=== PATIENT | female | born 1980 | race Caucasian/White ===

== ENCOUNTER → 2016-10-16 | Outpatient (CLI) | payer BC ==
--- NOTE | 2016-10-16 11:18 | MM ---
Reason for exam: additional evaluation requested from prior study. Last mammogram was performed 1 year and 2 months ago. History: Family history of unknown cancer in maternal aunt, breast cancer in paternal aunt, breast cancer in mother at age 30, breast cancer in maternal grandmother at age 40, and breast cancer in paternal grandmother at age 40. Taking hormonal contraceptives for 6 months. Physical Findings: Nurse did not find any significant physical abnormalities on exam. MG 3D Diag Mammo W/Cad JOSE MIGUEL Bilateral CC and MLO view(s) were taken. Prior study comparison: August 07, 2015, bilateral MG 3d diag mammo w/cad JOSE MIGUEL. February 16, 2013, left breast ultrasound. There is chronic nodularity in the right breast. There is no discrete abnormality. These results were verbally communicated with the patient and result sheet given to the patient on 10/16/16. ASSESSMENT: Benign, BI-RAD 2 RECOMMENDATION: Routine screening mammogram of both breasts in 1 year. Manage on a clinical basis with regard to pain.
--- NOTE | 2016-10-16 11:25 | USB ---
Reason for exam: clinical finding. History: Family history of unknown cancer in maternal aunt, breast cancer in paternal aunt, breast cancer in mother at age 30, breast cancer in maternal grandmother at age 40, and breast cancer in paternal grandmother at age 40. Taking hormonal contraceptives for 6 months. US Breast BILAT Right breast ultrasound includes all four quadrants, the retroareolar region and axilla. Finding demonstrate a 6 x 3 x 3mm oval, lymph node seen on previous at 7 o'clock and lymph node at axillary tail. Left breast ultrasound includes all four quadrants, the retroareolar region and axilla. Finding demonstrate lymph nodes in the axillary tail. These results were verbally communicated with the patient and result sheet given to the patient on 10/16/16. ASSESSMENT: Benign, BI-RAD 2 RECOMMENDATION: Routine screening mammogram of both breasts in 1 year. Manage on a clinical basis with regard to symptoms of pain.
== END | disposition home or self-care (01) ==
LOC: RADMAMWWP 09:52
PROVIDERS: ATTEND Family Medicine
DX: R92.8 Other abnormal and inconclusive findings on diagnostic imaging of breast (principal)
CPT/HCPCS: 76641; G0204; G0279

== ENCOUNTER → 2016-10-16 | Outpatient (CLI) | payer BC ==
--- NOTE | 2016-10-17 08:31 | XR ---
EXAMINATION TYPE: XR knee complete RT DATE OF EXAM: 10/16/2016 9:47 AM COMPARISON: NONE HISTORY: Pain TECHNIQUE: Four views are submitted. FINDINGS: There is narrowing of the medial compartment of the knee joint with hypertrophic changes. Hypertrophi c changes and narrowing of patellofemoral joint seen. Osseous structures are intact. No acute fractu re seen. IMPRESSION: 1. Moderate to severe osteoarthritis.
== END | disposition home or self-care (01) ==
LOC: RADXRYALE 09:42
PROVIDERS: ATTEND Nurse Practitioner Family
DX: M17.11 Unilateral primary osteoarthritis, right knee (principal)

== ENCOUNTER → 2017-01-14 | Outpatient (CLI) | payer BC ==
--- NOTE | 2017-01-15 06:59 | US ---
EXAMINATION TYPE: US bladder DATE OF EXAM: 01/14/2017 COMPARISON: NONE CLINICAL HISTORY: Urinary urgency R39.15. frequency EXAM MEASUREMENTS: Post Void Residual Volume: no residual bladder seen post void mL Color Doppler performed to assess ureteral jets. Bilateral Jets seen: Yes Normal Post Void Residual (less than 50ml): yes IMPRESSION: 1. No abnormality noted.
== END | disposition home or self-care (01) ==
LOC: RADUSWWP 15:46
PROVIDERS: ATTEND Family Medicine
DX: R39.15 Urgency of urination (principal)
CPT/HCPCS: 76857

== ENCOUNTER → 2017-10-14 | Outpatient (CLI) | payer BC ==
[2017-10-14 13:46] VITALS: BP 144/88; PULSE 85; RESP 16
--- NOTE | 2017-10-14 14:08 | P.PN ---
Progress Note - Text Progress Note Date: 10/14/17 Patient returns for followup for chronic back pain with radiation to hips and legs. In 2013 and 2014, patient underwent SIJ injections, epidural injections, and RFA, all of which provided only short-term relief, and she has not been to our clinic in > 24 months. Patient continues on Percocet medications for pain with some relief from her PCP. Patient denies adverse drug effects from medications. Today, pt denies new-onset weakness, bowel/bladder incontinence, or any other signs or symptoms of cauda equina syndrome. There are no signs of acute intoxication, and no indications of medication diversion or overuse. In addition to above, 13-point review of systems is also negative for chest pain , shortness of breath, changes in vision, changes in hearing, new onset weakness , abdominal pain, diarrhea, extreme fatigue, malaise, fever, skin changes, homicidal or suicidal ideation, or bowel or bladder incontinence. Vital Signs: Reviewed in EMR Gen: WDWN, AAOx3, NAD HEENT: NCAT, EOMI, hearing grossly normal Pulm: resp unlabored Abd: soft, NT, ND Neck: supple, trachea midline ROM in flexion lumbar spine: reduced ROM in extension lumbar spine: reduced Lumbar paravertebral tenderness: + Facet loading: + bilateral, L > R SI joint tenderness: + R > L Suleiman's test: + R > L Straight leg raise: neg Neuro: CN II-XII grossly intact, muscle strength lower extremities PRESERVED Imaging: Reviewed in EMR Assessment: 1. lumbar PLPS 2. lumbar spondylosis 3. chronic pain syndrome Plan: 1. Explanation: Opioid and psychological risk scores were reviewed. Diagnoses , prognoses, and multiple treatment options including but not limited to physical therapy, interventional therapies, adjuvant medical therapies, narcotic medication therapies, and surgery were discussed with the patient and all questions were answered to the patient's satisfaction. 2. Opioid agreement: no opioids prescribed today 3. Counseling: The patient was counseled extensively on SMOKING CESSATION, BODY MASS INDEX, EXERCISE. Specifically, the patient was instructed regarding the importance of smoking cessation, weight control, and exercise in the context of both chronic pain and overall health. 4. Procedures: SCS DVD given (likely plan for [employer]) 5. Consultations: Dr. Rodas, surgical consultation 6. Investigations: None 7. Medications: none prescribed 8. Disposition: f/u for re-eval in 8 weeks after appt with Dr. Rodas PQRS measures: 1-Patient's medications are documented in the chart. 2-Tobacco use is positive, counseling given 3-Patient has not had a pneumococcal vaccine. 4-Advanced care planning discussed, patient unable to give. 5-Opioid contract NOT signed with the patient. 6-Pain positive, follow-up visit or procedure scheduled 7-Patient's blood pressure measured and documented, and patient will follow up with the primary care due to hypertension. 8-Patient's weight was measured, and body mass index ABOVE the normal limits, and counseling was done. Patient instructed to follow up with PCP. 9-Patient WAS NOT identified as an unhealthy alcohol user.
== END | disposition home or self-care (01) ==
LOC: PNWHC3 12:49
PROVIDERS: ATTEND Anesthesiology
DX: G89.4 Chronic pain syndrome (principal); M47.816 Spondylosis without myelopathy or radiculopathy, lumbar region; M96.1 Postlaminectomy syndrome, not elsewhere classified; Z79.899 Other long term (current) drug therapy
CPT/HCPCS: 99211

== ENCOUNTER → 2018-02-17 | Outpatient (CLI) | payer OTHER ==
--- NOTE | 2018-02-18 10:20 | MM ---
Reason for exam: screening (asymptomatic). Last mammogram was performed 1 year and 4 months ago. History: Family history of unknown cancer in maternal aunt, breast cancer in paternal aunt, breast cancer in mother at age 30, breast cancer in maternal grandmother at age 40, and breast cancer in paternal grandmother at age 40. Took hormonal contraceptives for 6 months. Physical Findings: A clinical breast exam by your physician is recommended on an annual basis and results should be correlated with mammographic findings. MG 3D Screening Mammo W/Cad Bilateral CC and MLO view(s) were taken. Prior study comparison: October 16, 2016, bilateral MG 3d diag mammo w/cad JOSE MIGUEL. August 07, 2015, bilateral MG 3d diag mammo w/cad JOSE MIGUEL. The breast tissue is heterogeneously dense. This may lower the sensitivity of mammography. Stable right intramammary lymph node. ASSESSMENT: Negative, BI-RAD 1 RECOMMENDATION: Routine screening mammogram of both breasts at age 40. Manage on a clinical basis. If discharge in clear, bloody or from duct and suspicious diagnostic exam is recommended.
== END | disposition home or self-care (01) ==
LOC: RADMAMWWP 13:45
PROVIDERS: ATTEND Family Medicine
DX: Z12.31 Encounter for screening mammogram for malignant neoplasm of breast (principal); Z80.3 Family history of malignant neoplasm of breast
CPT/HCPCS: 77063; 77067

== ENCOUNTER → 2018-02-23 | Outpatient (CLI) | payer OTHER ==
--- NOTE | 2018-02-23 23:42 | MR ---
EXAMINATION TYPE: MR lumbar spine wo/w con DATE OF EXAM: 02/23/2018 COMPARISON: 03/10/2015 HISTORY: Low back pain, previous surgery, Gadavist 10ml TECHNIQUE: Multiplanar, multisequence images of the lumbar spine were acquired utilizing 10 mL intravenous Gadav ist gadolinium contrast. Normal alignment. Disc spaces are fairly normal. There is metal artifact and previous anterior fusion at L4-5.. The spinal canal has normal size. There is no spinal stenosis. Lumbar nerve roots appear n ormal. The neuroforamina appear widely patent. There is posterior metal artifact at L5-S1. Sacroiliac joints appear intact. There is no lumbar paraspinal mass. I see no focal bone destruction. The contr ast images show no pathologic enhancement. IMPRESSION: Previous fusion surgery. No fracture. No spinal stenosis. No lumbar disc herniation. No c hange compared to old exam.
== END | disposition home or self-care (01) ==
LOC: RADMRIMAIN 16:24
PROVIDERS: ATTEND Family Medicine
DX: M51.16 Intervertebral disc disorders with radiculopathy, lumbar region (principal); Z98.1 Arthrodesis status
CPT/HCPCS: 72158; A9581

== ENCOUNTER → 2018-04-12 | Outpatient (CLI) | payer BC ==
[2018-04-12 15:14] VITALS: BP 116/76; PULSE 77; RESP 18
--- NOTE | 2018-04-12 15:36 | P.PN ---
Subjective Progress Note Date: 04/12/18 Principal diagnosis: Failed back surgery syndrome This is a 37-year-old female with lower back pain with radiation to both legs to the knee levels. She is numbness in the right foot. The patient has been on Percocet, and Neurontin. Her pain has been getting out of control lately. Today, pt denies new-onset weakness, bowel/bladder incontinence, or any other signs or symptoms of cauda equina syndrome. There are no signs of acute intoxication, and no indications of medication diversion or overuse. In addition to above, 13-point review of systems is also negative for chest pain , shortness of breath, changes in vision, changes in hearing, new onset weakness , abdominal pain, diarrhea, extreme fatigue, malaise, fever, skin changes, homicidal or suicidal ideation, or bowel or bladder incontinence. Vital Signs: Reviewed in EMR Gen: AAOx3, NAD HEENT: PERRLA,hearing grossly normal Pulm: resp unlabored,CTA Heart:S1,S2, No Mur Neck: supple, trachea midline Neuro exam of the lower extremities: Showed decreased but symmetrical deep tendon reflexes and decreased hip flexion bilaterally to 4 out of 5 Straight leg raising test: Negative Tenderness in the paravertebral musculature: Positive in the lumbar area Positive tenderness around the sacroiliac joints bilaterally Neuro: CN II-XII grossly intact, Imaging: Reviewed in EMR/chart Assessment: Failed back surgery syndrome Bilateral sacroiliitis Obesity Operative dependence Plan: 1. Explanation: Opioid and psychological risk scores were reviewed. Diagnoses , prognoses, and multiple treatment options including but not limited to physical therapy, interventional therapies, adjuvant medical therapies, narcotic medication therapies, and surgery were discussed with the patient and all questions were answered to the patient's satisfaction. 2. Opioid agreement: We do not prescribe opioids for this patient 3. Counseling: The patient was counseled extensively on SMOKING CESSATION, BODY MASS INDEX, EXERCISE. Specifically, the patient was instructed regarding the importance of smoking cessation, obesity, and exercise in the context of both chronic pain and overall health. 4. Procedures: Scheduled for bilateral sacroiliac joint steroid injection under fluoroscopic guidance as diagnostic procedure 5. Consultations: None 6. Investigations: None 7. Medications: None prescribed 8. Disposition: Return to clinic for the above-mentioned procedure Objective - Vital Signs Vital signs: Vital Signs Temp Pulse 77 04/12/18 15:08 Resp 18 04/12/18 15:08 BP 116/76 04/12/18 15:08 Pulse Ox 99 04/12/18 15:08 Intake & Output 04/11/18 04/12/18 04/12/18 18:59 06:59 18:59 Weight 107.501 kg
== END | disposition home or self-care (01) ==
LOC: PNWHC3 13:47
PROVIDERS: ATTEND Anesthesiology
DX: M96.1 Postlaminectomy syndrome, not elsewhere classified (principal); M46.1 Sacroiliitis, not elsewhere classified; E66.9 Obesity, unspecified; Z68.39 Body mass index [BMI] 39.0-39.9, adult
CPT/HCPCS: 99211

== ENCOUNTER 2018-04-15 09:52 | Day surgery (SDC) | payer BC ==
[2018-04-13 14:52] VITALS: BMI 39.4
[~2018-04-15 09:52] MED LIST: LACTATED RINGERS 1,000 ML IV SCH
[2018-04-15] MEDS ORDERED: LIDOCAINE 1% 20 ML VIAL (10MG/ML) FOR IV START INTRADERMA ONE (11:18)
[2018-04-15 11:22] VITALS: RESP 16; TEMP 98
--- NOTE | 2018-04-15 11:52 | P.PCN ---
Date of Procedure: 04/15/18 Surgeon: Eric Hernandez Pathology: none sent Condition: stable Disposition: PACU Description of Procedure: Preoperative diagnoses= 1-bilateral sacroiliitis. 2-bilateral sacroiliac joint dysfunction.2-morbid obesity Postoperative diagnoses= same as preoperative diagnosis. Procedure= bilateral sacroiliac joint steroid injection under fluoroscopic guidance. Anesthesia= conscious sedation with Versed mg and fentanyl micrograms and local infiltration with lidocaine 1% 4 ml Estimated blood loss=minimal. Procedure indication= the patient had a history of severe chronic low back pain , diagnosed with sacroiliitis and lumbar sacral facet arthropathy unresponsive to conservative treatment. Procedure description= the patient was seen and identified in the preoperative holding area, risks and benefits and alternative of the procedure and possible complications discussed with the patient, patient signed the consent. an IV was started, and vital signs were monitored and were stable throughout the procedure , patient was placed in the prone position or table and the lumbosacral area was prepped and draped with a sterile fashion, vital signs were closely monitored during the procedure.The right sacroiliac joint was identified on the AP view of fluoroscopy then the C-arm was tilted to the left oblique position to superimpose the anterior and posterior joint lines on each other and to have a unified joint line with the target point at the inferior one third of this line. I used 22-gauge 3-1/2 inch Quincke spinal needle for this procedure and after getting into the sacroiliac joint I injected 40 mg of Depo-Medrol +2.5 MLS of Ropivacaine 0.5%. The same procedure was repeated on the left side by tilting the C-arm to the right oblique position this time. At the target point was also at the inferior one third of this unified joint line. Using a 22- gauge 3-1/2 inch Quincke spinal needle I injected 40 mg of Depo-Medrol plus 2.5 MLS of ropivacaine 0.5%. Patient tolerated the procedure well without any complication, The patient returned to supine position after the back was cleaned and a Band- Aid applied, the patient transported to recovery room in stable condition and he was monitored for 30 minutes before he was discharged home and then patient was reexamined before going home and patient was discharged in stable condition and patient will follow up with the pain clinic in a few weeks
[2018-04-15] MEDS ORDERED: IV FLUID CONTINUATION 500 ML IV ONE (12:00)
[2018-04-15 12:24] VITALS: BP 108/74; PULSE 58
--- NOTE | 2018-04-15 12:44 | FL ---
Fluoroscopy HISTORY: Pain 7 seconds fluoroscopy time supplied to the referring clinician. 1 intraoperative C-arm images docume nt the procedure. See dictated report from anesthesia.
== END 2018-04-15 12:30 | disposition home or self-care (01) ==
LOC: ORPAIN 09:52
PROVIDERS: ATTEND Anesthesiology
DX: M46.1 Sacroiliitis, not elsewhere classified (principal); M53.3 Sacrococcygeal disorders, not elsewhere classified; E66.01 Morbid (severe) obesity due to excess calories; Z68.39 Body mass index [BMI] 39.0-39.9, adult; Z88.6 Allergy status to analgesic agent; Z88.5 Allergy status to narcotic agent
CPT/HCPCS: 84703; 27096; J2250; J1030; J3010

== ENCOUNTER → 2018-05-07 | Outpatient (CLI) | payer BC, OTHER ==
--- NOTE | 2018-05-07 09:49 | US ---
EXAMINATION TYPE: US pelvis complete transvag DATE OF EXAM: 05/07/2018 COMPARISON: US 07/16/2016 CLINICAL HISTORY: N92.6 Irregular menstruation, unspecified. Dysparunia x 2 years TECHNIQUE: . Transabdominal sonographic images of the pelvis were acquired. Transvaginal sonographi c images were medically necessary to better assess the following anatomy: Endometrium Date of LMP: 05/04/2018 EXAM MEASUREMENTS: Uterus: 9.9 x5.7 x 5.2 cm Endometrial Stripe: 0.3 cm Right Ovary: 4.3 x 2.4 x 2.1 cm Left Ovary: 3.6 x 2.4 x 2.0 cm 1. Uterus: Retroverted Heterogeneous texture 2. Endometrium: wnl 3. Right Ovary: wnl 4. Left Ovary: wnl. 5. Bilateral Adnexa: wnl 6. Posterior cul-de-sac: wnl Normal follicles seen bilaterally IMPRESSION: 1. Uterus is heterogeneous diffusely which is a nonspecific finding. No focal uterine fibroids identi fied. Endometrial stripe measures within normal limits. Correlate clinically.
== END | disposition home or self-care (01) ==
LOC: RADUSWWP 09:01
PROVIDERS: ATTEND Nurse Practitioner Family
DX: N92.6 Irregular menstruation, unspecified (principal); N94.10 Unspecified dyspareunia
CPT/HCPCS: 76830; 76856

== ENCOUNTER → 2018-07-23 | Outpatient (CLI) | payer BC ==
[2018-07-23 11:10] LABS: Basophils # (A) 0.1 k/uL (0-0.2); Basophils % (A) 1 %; Eosinophils # (A) 0.4 k/uL (0-0.7); Eosinophils % (A) 4 %; HCT 41.9 % (34.0-46.0); HGB 13.7 gm/dL (11.4-16.0); Lymphocytes # (A) 2.6 k/uL (1.0-4.8); Lymphocytes % (A) 28 %; MCH 31.9 pg (25.0-35.0); MCHC 32.7 g/dL (31.0-37.0); MCV 97.4 fL (80.0-100.0); Mean Platelet Volume 7.2; Monocytes # (A) 0.4 k/uL (0-1.0); Monocytes % (A) 4 %; Neutrophils # (A) 5.7 k/uL (1.3-7.7); Neutrophils % (A) 62 %; Platelet Count 275 k/uL (150-450); RBC 4.31 m/uL (3.80-5.40); RDW 12.9 % (11.5-15.5); WBC 9.2 k/uL (3.8-10.6)
== END | disposition home or self-care (01) ==
LOC: LABPAT 10:20
PROVIDERS: ATTEND Obstetrics & Gynecology
DX: Z01.812 Encounter for preprocedural laboratory examination (principal)
CPT/HCPCS: 85025

== ENCOUNTER → 2018-07-23 | Outpatient (CLI) | payer BC ==
[2018-07-23 16:31] LABS: Albumin 4.5 g/dL (3.80-4.90); Albumin/Globulin Ratio 2.5 (1.20-2.10); Anion Gap 7.7 mmol/L (4.00-12.00); Calcium 9.4 mg/dL (8.7-10.3); Carbon Dioxide 27.3 mmol/L (21.6-31.8); Globulin 1.8 g/dL (1.6-3.3); Potassium 4.5 mmol/L (3.5-5.5); Total Bilirubin 0.6 mg/dL (0.3-1.2); Total Protein 6.3 g/dL (6.2-8.2)
== END | disposition home or self-care (01) ==
LOC: LABWHC1 10:22
PROVIDERS: ATTEND Physician Assistant
DX: Z51.81 Encounter for therapeutic drug level monitoring (principal); Z79.891 Long term (current) use of opiate analgesic
CPT/HCPCS: 36415; 80053

== ENCOUNTER 2018-07-30 05:49 | Day surgery (SDC) | payer BC, OTHER ==
[2018-07-23 14:24] VITALS: BMI 40.6
--- NOTE | 2018-07-29 19:11 | P.HPOB ---
History of Present Illness H&P Date: 07/29/18 Chief Complaint: Menorrhagia with irregular cycle This is a 37-year-old female 3 para 3 who presents for dilation and curettage with hysteroscopy and NovaSure endometrial ablation secondary to menorrhagia with irregular cycle. She states she has been having heavy and irregular menses with painful menses over the last 2 years. She also has noted some abdominal pain and painful intercourse. She has tried control pills in the past but had side effects from them. Her menses are occurring anywhere from 1-3 months apart and lasting anywhere from 3-9 days area and sometimes she has heavy flow with clots and sometimes a light brown discharge. Her pelvic ultrasound showed a uterus measuring 9.9 x 5.7 x 5.2 cm with an endometrial stripe of 0.3 cm. Normal ovaries were noted. Obstetrical history: . History of 3 vaginal deliveries. Gynecologic history: History of a tubal ligation. She was treated for Chlamydia years ago. Social history: She is and works as a homemaker. Review of Systems Constitutional: Denies chills, Denies fever Eyes: denies blurred vision, denies pain Ears, nose, mouth and throat: Reports headache, Denies sore throat Cardiovascular: Denies chest pain, Denies shortness of breath Respiratory: Denies cough Gastrointestinal: Denies abdominal pain, Denies diarrhea, Denies nausea, Denies vomiting Genitourinary: Reports dysmenorrhea, Reports menorrhagia, Reports pelvic pain Menstruation: Reports menses variable, Reports period heavy Musculoskeletal: Reports myalgias Integumentary: Denies pruritus, Denies rash Neurological: Reports migraines, Reports numbness Psychiatric: Denies anxiety, Denies depression Endocrine: Denies fatigue, Denies weight change Past Medical History Past Medical History: GERD/Reflux, Musculoskeletal Disorder, Osteoarthritis (OA) Additional Past Medical History / Comment(s): MIGRAINES, BACK PAIN , MUSCLE SPASMS ALL OVER, ARTHRITIS IN KNEES, HEAVY MENSTRUAL PERIODS WITH CRAMPS. History of Any Multi-Drug Resistant Organisms: None Reported Past Surgical History: Adenoidectomy, Back Surgery, Breast Surgery, Cholecystectomy, Orthopedic Surgery, Tonsillectomy, Tubal Ligation Additional Past Surgical History / Comment(s): Breast biopsy, Knee Arthroscopy; PAIN CLINIC PROCEDURES, Past Anesthesia/Blood Transfusion Reactions: No Reported Reaction Past Psychological History: Anxiety Smoking Status: Current every day smoker Past Alcohol Use History: None Reported Additional Past Alcohol Use History / Comment(s): has smoked for about 20 years ; cutting down- smokes < 1/2 ppd Past Drug Use History: None Reported - Past Family History Father Family Medical History: CVA/TIA, Deep Vein Thrombosis (DVT) Mother Family Medical History: Cancer Medications and Allergies Home Medications Medication Instructions Recorded Confirmed Type Gabapentin [Neurontin] 600 mg PO TID #90 tablet 06/26/15 07/23/18 Rx SUMAtriptan SUCCINATE [Imitrex] 1 tab PO DIRECTED PRN 04/12/18 07/23/18 History oxyCODONE-APAP 10-325MG [Percocet 1 tab PO TID PRN 04/12/18 07/23/18 History 10-325 mg] Calcium Carbonate [Tums] 500 mg PO DIRECTED PRN 07/23/18 07/23/18 History Diclofenac Sodium [Voltaren] 75 mg PO BID 07/23/18 07/23/18 History tiZANidine [Zanaflex] 2 mg PO Q8HR PRN 07/23/18 07/23/18 History Allergies Allergy/AdvReac Type Severity Reaction Status Date / Time aspirin AdvReac Chest Verified 07/23/18 13:56 Pain, difficulty breathing codeine phosphate AdvReac Chest Verified 07/23/18 13:56 [From Tylenol-Codeine #3] Pain, Difficulty Breathing Exam Osteopathic Statement: *. No significant issues noted on an osteopathic structural exam other than those noted in the History and Physical/Consult. HEENT: Within normal limits Heart: Regular rate and rhythm Lungs: Clear to auscultation bilaterally Abdomen: Soft, nontender Pelvic exam: Uterus is retroverted, mildly tender, and no adnexal masses or tenderness are noted. Extremities: Negative Homans Assessment and Plan (1) Menorrhagia with irregular cycle Status: Acute Code(s): N92.1 - EXCESSIVE AND FREQUENT MENSTRUATION WITH IRREGULAR CYCLE SNOMED Code(s): 124954193 Plan: Proceed with dilation and curettage with hysteroscopy and NovaSure endometrial ablation. I have discussed the risks, benefits, and alternative therapies for the above- mentioned procedure and for both sedation/anesthesia as well as necessary blood products administration, if indicated, as they pertain to this patient. The patient has indicated her understanding and acceptance of the risks and procedures discussed.
[~2018-07-30 05:49] MED LIST changes: +DEXAMETHASONE SOD PHOSPHATE 10 MG/ML 1 ML VIAL IV ONE; +KETOROLAC 30 MG/ML 1 ML VIAL IVP SCH; +LIDOCAINE 1% 20 ML VIAL (10MG/ML) FOR IV START INTRADERMA PRN; +MIDAZOLAM 2 MG/2 ML VIAL IV PRN; +ONDANSETRON 4 MG/2 ML VIAL IVP ONE; +Pre Op ABX Message 1 EACH MISC MISCELLANE ONE; +SCOPOLAMINE 1.5MG/72HR PATCH TRANSDERM ONE
[2018-07-30] MEDS ORDERED: MIDAZOLAM 2 MG/2 ML VIAL ONE (08:02)
[2018-07-30] MEDS ORDERED: LIDOCAINE 1% INJ 10MG/ML (20 ML MDV) ONE (08:02)
[2018-07-30] MEDS ORDERED: PROPOFOL 10 MG/ML 20 ML VIAL IV ONE (08:02)
[2018-07-30] MEDS ORDERED: SUCCINYLCHOLINE CHLORIDE 100 MG/5 ML SYR IV ONE (08:02)
[2018-07-30] MEDS ORDERED: KETOROLAC 30 MG/ML 1 ML VIAL ONE (08:02)
[2018-07-30] MEDS ORDERED: fentaNYL (PF) 50 MCG/ML 2 ML AMP ONE (08:02)
--- NOTE | 2018-07-30 08:34 | P.OP ---
Date of Procedure: 07/30/18 Preoperative Diagnosis: Menorrhagia with irregular cycle Postoperative Diagnosis: Same Procedure(s) Performed: Dilation and curettage with hysteroscopy and NovaSure endometrial ablation Anesthesia: SALEEM Surgeon: Queenie Golden Estimated Blood Loss (ml): 20 Pathology: other (Endometrial curettings) Condition: stable Disposition: same day Indications for Procedure: This is a 37-year-old female 3 para 3 who presents for dilation and curettage with hysteroscopy and NovaSure endometrial ablation secondary to menorrhagia with irregular cycle. She states she has been having heavy and irregular menses with painful menses over the last 2 years. She also has noted some abdominal pain and painful intercourse. She has tried control pills in the past but had side effects from them. Her menses are occurring anywhere from 1-3 months apart and lasting anywhere from 3-9 days area and sometimes she has heavy flow with clots and sometimes a light brown discharge. Her pelvic ultrasound showed a uterus measuring 9.9 x 5.7 x 5.2 cm with an endometrial stripe of 0.3 cm. Normal ovaries were noted. Operative Findings: Uterus is retroverted and sounded to 9-1/2 cm. Cervix is sounded to 3 cm. Upon hysteroscopy a small amount of polypoid type tissue was visualized. A large amount of endometrial curettings are obtained. Both tubal ostia are visualized. No adnexal masses are palpated. Description of Procedure: The patient is taken to the operating room. She is placed in the dorsal lithotomy position after general anesthesia was given. She is prepped and draped in the normal sterile fashion. Bladder is drained with a catheter and then removed. Pelvic exam is performed under anesthesia. Uterus is found to be retroverted with no adnexal masses. She is placed in slight Trendelenburg position. A right angle retractor is used to visualize the cervix. The anterior lip of the cervix is grasped with a single-tooth tenaculum. Cervix is sounded to 3 cm. Uterus is sounded to 9.5 cm. Cervix is gently dilated with Monet dilators until a hysteroscope could be passed. Hysteroscopy is performed using normal saline. The above noted findings are noted. Next a polyp forceps is introduced. A minimal amount of tissue was obtained. Next medium-sized size sharp curette was placed. A moderate to large amount of endometrial curettings were obtained. Next NovaSure array was inserted into the endometrial cavity. Length was set at 6.5 cm and width was determined to be 4.3 cm. Next cavity assessment was completed and passed on the first try. Next NovaSure array was fired at 154 W for 50 seconds. Next the array was removed, inspected and then discarded. Next the hysteroscope was reinserted. Uniform charring was noted. Pictures were taken. Hysteroscope was removed. Single-tooth tenaculum was removed from the anterior lip of the cervix. Minimal bleeding was noted. All other instruments removed from the vagina. Sponge counts were correct. Patient is taken to recovery room in stable condition.
[2018-07-30 08:47] VITALS: TEMP 97.1
[2018-07-30] MEDS ORDERED: HYDROmorphone 2 MG/ML 1 ML SYRINGE IVP ONE (08:55)
[2018-07-30] MEDS ORDERED: HYDROmorphone 1 MG/ML 1 ML SYRINGE IVP ONE ×3 (09:00→09:20)
[2018-07-30] MEDS ORDERED: LACTATED RINGERS 1,000 ML IV ONE (09:29)
[2018-07-30 09:44] VITALS: RESP 18
[2018-07-30 10:00] VITALS: BP 137/67; PULSE 78
== END 2018-07-30 10:24 | disposition home or self-care (01) ==
LOC: OR 05:49
PROVIDERS: ATTEND Obstetrics & Gynecology
DX: N92.0 Excessive and frequent menstruation with regular cycle (principal); N92.6 Irregular menstruation, unspecified; K21.9 Gastro-esophageal reflux disease without esophagitis; M19.90 Unspecified osteoarthritis, unspecified site; G43.909 Migraine, unspecified, not intractable, without status migrainosus; F41.9 Anxiety disorder, unspecified; F17.210 Nicotine dependence, cigarettes, uncomplicated; Z79.899 Other long term (current) drug therapy; Z88.6 Allergy status to analgesic agent; Z88.5 Allergy status to narcotic agent; Z98.51 Tubal ligation status
CPT/HCPCS: 81025; 88305; 58563; J2250; J1170 ×2; J1100; J2405; J2001; J3010; J1885; J0330; J2704

== ENCOUNTER → 2020-12-11 | Outpatient (CLI) | payer OTHER ==
--- NOTE | 2020-12-12 13:57 | MM ---
Reason for exam: screening (asymptomatic). Last mammogram was performed 2 years and 10 months ago. History: Family history of unknown cancer in maternal aunt, breast cancer in paternal aunt, breast cancer in mother at age 30, breast cancer in maternal grandmother at age 40, and breast cancer in paternal grandmother at age 40. Took hormonal contraceptives for 6 months. Physical Findings: A clinical breast exam by your physician is recommended on an annual basis and results should be correlated with mammographic findings. MG 3D Screening Mammo W/Cad Bilateral CC and MLO view(s) were taken. Prior study comparison: February 17, 2018, bilateral MG 3d screening mammo w/cad. October 16, 2016, bilateral MG 3d diag mammo w/cad JOSE MIGUEL. The breast tissue is heterogeneously dense. This may lower the sensitivity of mammography. Focal asymmetry right upper outer quadrant and left upper outer quadrant. This finding is changed when compared with previous exams. ASSESSMENT: Incomplete: need additional imaging evaluation, BI-RAD 0 RECOMMENDATION: Special view mammogram of both breasts. If lesion persists on supplemental views, image directed ultrasound is recommended. [facility] will attempt to contact patient to return for supplemental views and ultrasound if indicated.
== END | disposition home or self-care (01) ==
LOC: RADMAMWWP 09:47
PROVIDERS: ATTEND Family Medicine
DX: Z12.31 Encounter for screening mammogram for malignant neoplasm of breast (principal); Z80.3 Family history of malignant neoplasm of breast
CPT/HCPCS: 77063; 77067

== ENCOUNTER → 2020-12-17 | Outpatient (CLI) | payer OTHER ==
--- NOTE | 2020-12-18 09:30 | MM ---
Reason for exam: additional evaluation requested from abnormal screening. Last mammogram was performed less than 1 month ago. History: Family history of unknown cancer in maternal aunt, breast cancer in paternal aunt, breast cancer in mother at age 30, breast cancer in maternal grandmother at age 40, and breast cancer in paternal grandmother at age 40. Took hormonal contraceptives for 6 months. Physical Findings: Nurse did not find any significant physical abnormalities on exam. MG 3D Work Up W/Cad JOSE MIGUEL Bilateral spot compression CC, spot compression MLO, and LM view(s) were taken. Prior study comparison: December 11, 2020, bilateral MG 3d screening mammo w/cad. February 17, 2018, bilateral MG 3d screening mammo w/cad. There are scattered fibroglandular densities. These results were verbally communicated with the patient and result sheet given to the patient on 12/17/20. ASSESSMENT: Incomplete: need additional imaging evaluation, BI-RAD 0 RECOMMENDATION: Ultrasound of both breasts.
--- NOTE | 2020-12-18 09:30 | USB ---
Reason for exam: additional evaluation requested from abnormal screening. History: Family history of unknown cancer in maternal aunt, breast cancer in paternal aunt, breast cancer in mother at age 30, breast cancer in maternal grandmother at age 40, and breast cancer in paternal grandmother at age 40. Took hormonal contraceptives for 6 months. US Breast Workup Limited JOSE MIGUEL Right limited breast ultrasound including focal area of concern, retroareolar and axilla demonstrates a 2.5 x 0.9 x 2.8cm cystic lesion at 10 o'clock, simple cyst, correlates with mammogram. Left limited breast ultrasound including focal area of concern, retroareolar and axilla demonstrates a 0.6 x 0.3 x 0.6cm mixed lesion at 2 o'clock, fibrocystic change. These results were verbally communicated with the patient and result sheet given to the patient on 12/17/20. ASSESSMENT: Benign, BI-RAD 2 RECOMMENDATION: Return to routine screening mammogram schedule for both breasts.
== END | disposition home or self-care (01) ==
LOC: RADMAMWWP 09:47
PROVIDERS: ATTEND Family Medicine
DX: N60.01 Solitary cyst of right breast (principal); N60.02 Solitary cyst of left breast; N64.89 Other specified disorders of breast; Z80.3 Family history of malignant neoplasm of breast
CPT/HCPCS: 77062; 77066

== ENCOUNTER → 2022-03-03 | Outpatient (CLI) | payer OTHER ==
--- NOTE | 2022-03-03 13:00 | US ---
EXAMINATION TYPE: US pelvis complete transvag DATE OF EXAM: 03/03/2022 COMPARISON: 05/07/2080 CLINICAL HISTORY: 41-year-old female N92.6 Irregular menstruation. Cramping & spotting x 2 months, gr avida 3, para 3, history uterine ablation 2017 and tubal ligation TECHNIQUE: Transabdominal sonographic images of the pelvis were acquired. Transvaginal sonographic i mages were medically necessary to better assess the following anatomy: endometrium and ovaries Date of LMP: 2017 FINDINGS: EXAM MEASUREMENTS: Uterus: 8.6 x 5.1 x 5.8 cm Endometrial Stripe: 0.7 cm Right Ovary: 3.9 x 2.5 x 2.4 cm Left Ovary: 3.6 x 2.2 x 2.2 cm 1. Uterus: retroverted, heterogeneous myometrium 2. Endometrium: appears wnl 3. Right Ovary: 2.0cm dominant follicle or functional cyst. 4. Left Ovary: Follicular change. 5. Bilateral Adnexa: wnl 6. Posterior cul-de-sac: small amount of free fluid IMPRESSION: 1. Endometrial stripe measuring 7 mm. 2. Retroverted uterus. Slightly heterogeneous myometrium is nonspecific and could reflect diffuse sma ll fibroid changes or adenomyosis. 3. Follicular change in both ovaries. 4. Small amount of cul-de-sac free fluid likely physiologic.
== END | disposition home or self-care (01) ==
LOC: RADUSWWP 09:12
PROVIDERS: ATTEND Family Medicine
DX: N92.6 Irregular menstruation, unspecified (principal); N85.4 Malposition of uterus
CPT/HCPCS: 76830; 76856

== ENCOUNTER → 2022-03-17 | Outpatient (CLI) | payer OTHER ==
--- NOTE | 2022-03-17 07:37 | MM ---
Reason for Exam: Follow-up at short interval from prior study. Last mammogram was performed 1 year(s) and 3 month(s) ago. Patient History: Menarche at age 14. First Full-Term at age 18. Hormonal Contraceptives for 6 months. Paternal grandmother had breast cancer, age 40. Maternal grandmother had breast cancer, age 40. Paternal aunt had breast cancer. Maternal aunt had other cancer. Mother had breast cancer, age 30. Risk Values: Faby 5 year model risk: 1.0%. NCI Lifetime model risk: 16.3%. Prior Study Comparison: 02/16/2013 Left Diagnostic Ultrasound, [facility]. 08/07/2015 Bilateral Diagnostic Mammogram, [facility]. 08/07/2015 Right Diagnostic Ultrasound, [facility]. 10/16/2016 Bilateral Diagnostic Mammogram, [facility]. 10/16/2016 Bilateral Diagnostic Ultrasound, [facility]. 02/17/2018 Bilateral Screening Mammogram, [facility]. 12/11/2020 Bilateral Screening Mammogram, [facility]. 12/17/2020 Bilateral Diagnostic Mammogram, [facility]. 12/17/2020 Bilateral Diagnostic Ultrasound, [facility]. Tissue Density: The breast tissue is heterogeneously dense. This may lower the sensitivity of mammography. Findings: Analyzed By CAD. Asymmetric density lateral left cc view becomes less defined on the exaggerated view, appearance unchanged from prior exams. Low axillary tail lymph node on the left. Chronic underlying circumscribed nodularity upper outer quadrant left breast. No significant change from prior exams. Overall Assessment: Benign, BI-RAD 2 Management: Screening Mammogram of both breasts in 1 year. 1. Further clinical management of bilateral breast pain. Patient should continue monthly self breast exams. 2. A clinical breast exam by your physician is recommended on an annual basis. 3. This exam should not preclude additional follow-up of suspicious palpable abnormalities. Electronically signed and approved by: Wallace Brenner M.D. Radiologist
== END | disposition home or self-care (01) ==
LOC: RADMAMWWP 06:55
PROVIDERS: ATTEND Family Medicine
DX: N64.4 Mastodynia (principal); Z80.3 Family history of malignant neoplasm of breast
CPT/HCPCS: 77062; 77066